=== PATIENT | female | born 1995 | race American Indian/Alaskan Native ===

== ENCOUNTER 2016-05-10 14:32 | Emergency (ER) | payer SELFPAY | END 2016-05-10 17:23 | disposition left against medical advice (07) | LOC: ED 14:32 | DX: R21 Rash and other nonspecific skin eruption (principal); Z91.018 Allergy to other foods; Z53.21 Procedure and treatment not carried out due to patient leaving prior to being seen by health care provider ==

== ENCOUNTER 2017-11-11 10:13 | Outpatient (CLI) | payer SELFPAY ==
[2017-11-11 11:41] VITALS: BP 99/70
== END 2017-11-11 12:10 | disposition home or self-care (01) ==
LOC: TRG 10:13
PROVIDERS: ATTEND Obstetrics & Gynecology
DX: O47.1 False labor at or after 37 completed weeks of gestation (principal); Z3A.39 39 weeks gestation of pregnancy
CPT/HCPCS: 59025

== ENCOUNTER 2017-11-20 05:48 | Inpatient (IN) | payer OTHER ==
[2017-11-20] MEDS ORDERED: POLYCILLIN/NS 2 GM/100 ML 2 GM/100 ML BAG IV ONE (06:37)
[2017-11-20] MEDS ORDERED: MINERAL OIL PO PRN (06:37)
[2017-11-20] MEDS ORDERED: BRETHINE IVP PRN (06:37)
[2017-11-20] MEDS ORDERED: XYLOCAINE 2% INFILTRATI ONE (06:37)
[2017-11-20] MEDS ORDERED: SUBLIMAZE IV PRN (06:37)
[2017-11-20] MEDS ORDERED: BRETHINE SUB-Q PRN (06:37)
[2017-11-20] MEDS ORDERED: ZOFRAN IV PRN (06:37)
--- NOTE | 2017-11-20 06:59 | History and Physical Report ---
History of Present Illness Date of examination: 11/20/17 Date of admission: 11/20/17 06:03 Chief complaint: Labor History of present illness: IUP@40 4/7wga by US performed at [facility] according to patient, she did not receive PNC b/c she was homeless. She started getting PNC with [facility] and was sent to [facility] for an US, after that she has not had any PNC Past History Past Medical History: no pertinent history Past Surgical History: no surgical history [employer] History: denies: chlamydia, gonorrhea, hepatitis B, hepatitis C, herpes, HIV , syphilis Social history: no significant social history - Obstetrical History Expected Date of Delivery: 11/16/17 Actual Gestation: 40 Week(s) 4 Day(s) : 2 Para: 1 Medications and Allergies Allergies Allergy/AdvReac Type Severity Reaction Status Date / Time apple Allergy Severe Swelling Verified 07/09/15 17:16 Home Medications Medication Instructions Recorded Confirmed Last Taken Type No Known Home Medications [No 11/11/17 11/11/17 Unknown History Reported Home Medications] Active Meds: Active Medications Ephedrine Sulfate (Ephedrine Sulfate) 10 mg IV Q2M PRN PRN Reason: Hypotension Fentanyl (Sublimaze) 100 mcg IV Q2H PRN PRN Reason: Labor Pain Ampicillin Sodium (Ampicillin/Ns 1 Gm/50 Ml) 1 gm in 50 mls @ 100 mls/hr IV Q4H KIKO; Protocol Ampicillin Sodium (Polycillin/Ns 2 Gm/100 Ml) 2 gm in 100 mls @ 100 mls/hr IV ONCE ONE; Protocol Stop: 11/20/17 07:36 Lactated Ringer's (Lactated Ringers) 1,000 mls @ 125 mls/hr IV DIRECT KIKO Oxytocin/Sodium Chloride (Pitocin/Ns 20 Unit/1000ml Drip) 20 units in 1,000 mls @ 125 mls/hr IV DIRECT KIKO Oxytocin/Sodium Chloride (Pitocin/Ns 30 Unit/500ml) 30 units in 500 mls @ 1 mls /hr IV TITR KIKO; Protocol Oxytocin/Sodium Chloride (Pitocin/Ns 30 Unit/500ml) 30 units in 500 mls @ 4 mls /hr IV TITR KIKO; Protocol Mineral Oil (Mineral Oil) 30 ml PO QHS PRN PRN Reason: Constipation Ondansetron HCl (Zofran) 4 mg IV Q8H PRN PRN Reason: Nausea And Vomiting Terbutaline Sulfate (Brethine) 0.25 mg SUB-Q ONCE PRN PRN Reason: Hyperstimulation/Hypertonicity Terbutaline Sulfate (Brethine) 0.25 mg IVP ONCE PRN PRN Reason: Hyperstimulation/Hypertonicity - Vital Signs Vital signs: Vital Signs Pulse Pulse Ox 76 99 11/20/17 06:21 11/20/17 06:21 Temp Pulse Resp BP Pulse Ox 69 114/78 100 11/20/17 06:51 11/20/17 06:49 11/20/17 06:51 - Physical Exam Breasts: Positive: deferred Lungs: Positive: Normal air movement Abdomen: Positive: soft. Negative: tenderness, guarding Genitourinary (Female): Positive: normal external genitalia, normal perenium Vulva: both: normal Uterus: Positive: enlarged Extremities: Positive: normal. Negative: tenderness, edema - Obstetrical FHR: category 1 Uterine Contraction Monitor Mode: External Cervical Dilatation: 5 Cervical Effacement Percentage: 70 station: -1 Uterine Contraction Pattern: Irregular Results All other labs normal. Assessment and Plan Anticpate vagianl delivery - Patient Problems (1) 40 weeks gestation of Current Visit: Yes Status: Acute (2) Active labor Current Visit: Yes Status: Acute (3) No care in current Current Visit: Yes Status: Acute
[2017-11-20] MEDS ORDERED: PITOCin/NS 20 UNIT/1000ML DRIP 20 UNITS/1,000 ML BAG IV SCH (07:00)
[2017-11-20] MEDS ORDERED: PITOCin/NS 30 UNIT/500ML 30 UNITS/500 ML BAG IV SCH ×2 (07:00)
[2017-11-20] MEDS ORDERED: LACTATED RINGERS 1,000 ML IV SCH (07:00)
[2017-11-20 07:23] LABS: Hematocrit 25.7 % (30.3-42.9); Hemoglobin 8.3 gm/dl (10.1-14.3); Mean Corpuscular HGB Conc 32 % (30-34); Mean Corpuscular Hemoglobin 29 pg (28-32); Mean Corpuscular Volume 89 fl (79-97); Platelet Count 121 K/mm3 (140-440); Red Blood Count 2.88 M/mm3 (3.65-5.03)
[2017-11-20 07:59] LABS: Rubella IgG Antibody Immune (Immune)
[2017-11-20 08:00] LABS: Amphetamine Screen,Urine PRESUMPTIVE NEGATIVE; Benzodiazepines Screen,Urine PRESUMPTIVE NEGATIVE; Cocaine Screen,Urine PRESUMPTIVE NEGATIVE; Methadone Screen,Urine PRESUMPTIVE NEGATIVE; Opiate Screen,Urine PRESUMPTIVE NEGATIVE
[2017-11-20 08:15] LABS: Cannabinoid Screen,Urine PRESUMPTIVE POSITIVE
[2017-11-20] MEDS ORDERED: NARCAN 2 MG/2 ML IV PRN (08:28)
--- NOTE | 2017-11-20 08:28 | Anesthesia Consultation ---
Anesthesia Consult and Med Hx Date of service: 11/20/17 - Airway Anesthetic Teeth Evaluation: Good ROM Head & Neck: Adequate Mental/Hyoid Distance: Adequate Mallampati Class: Class II Intubation Access Assessment: Probably Good - Pulmonary Exam CTA: Yes - Cardiac Exam Cardiac Exam: RRR - Pre-Operative Health Status ASA Pre-Surgery Classification: ASA2 Proposed Anesthetic Plan: Epidural, Spinal - Pulmonary Hx Asthma: No COPD: No Hx Pneumonia: No - Cardiovascular System Hx Hypertension: No - Central Nervous System Hx Seizures: No Hx Psychiatric Problems: No - Endocrine Hx Renal Disease: No Hx End Stage Renal Disease: No Hx Hypothyroidism: No Hx Hyperthyroidism: No - Hematic Hx Anemia: Yes Hx Sickle Cell Disease: No - Other Systems Hx Alcohol Use: No
[2017-11-20] MEDS: fentaNYL-BUPIV 2 MCG/ML-0.125% 200 MCG/100 ML BAG EPIDURAL SCH ×2 (09:52→11:26)
--- NOTE | 2017-11-20 10:22 | Event Note ---
Date: 11/20/17 Patient has had relief with epidural. Artificial rupture membranes performed with clear fluid. Cervix 6.5 cm 90% effaced -2 station. Will continue Pitocin
[2017-11-20] MEDS ORDERED: XYLOCAINE MPF 2% ONE (10:40)
[2017-11-20] MEDS: AMPICILLIN/NS 1 GM/50 ML 1 GM/50 ML BAG IV SCH ×2 (11:09→11:14)
[2017-11-20 11:11] LABS: Hepatitis C Virus Antibody Non-Reactive (NonReactive)
[2017-11-20] MEDS ORDERED: METHERGINE IM ONE (12:02)
--- NOTE | 2017-11-20 12:06 | Procedure Note ---
OB Delivery Note - Delivery Date of Delivery: 11/20/17 Surgeon: ADAN PORTER Estimated blood loss: 500cc - Vaginal Delivery position: OP Intrapartum events: no care Delivery augmentation: rupture of membranes, pitocin Delivery monitor: external FHT, external uterine, internal FHT, internal uterine Route of delivery: Delivery placenta: spontaneous Episiotomy: none Delivery laceration: 1st degree, other (Periurethral) Anesthesia: epidural Delivery comments: Patient with increased bleeding despite uterine massage and IV pitocin. Methergine given IM - A at 1 minute: 9 at 5 minutes: 9 Gender: Female
[2017-11-20] MEDS ORDERED: MILK OF MAGNESIA PO PRN (13:14)
[2017-11-20] MEDS ORDERED: TUCKS PAD TP PRN (13:14)
[2017-11-20] MEDS ORDERED: LANSINOH TP PRN (13:14)
[2017-11-20] MEDS ORDERED: TYLENOL PO PRN (13:14)
[2017-11-20] MEDS ORDERED: BENADRYL PO PRN (13:14)
[2017-11-20] MEDS ORDERED: PHENERGAN PO PRN (13:14)
[2017-11-20] MEDS ORDERED: SODIUM CHLORIDE FLUSH SYRINGE 10 ML IV NR (13:14)
[2017-11-20] MEDS ORDERED: DULCOLAX PR PRN (13:14)
[2017-11-20] MEDS: MOTRIN PO SCH ×2 (13:27→19:30)
[2017-11-21 00:56] LABS: Hematocrit 22.1 % (30.3-42.9)
[2017-11-21] MEDS ORDERED: BOOSTRIX IM ONE (06:00)
[2017-11-21] MEDS: MOTRIN PO SCH ×3 (06:16→21:08)
[2017-11-21] MEDS: PRENATAL VITAMIN PO SCH (10:00)
[2017-11-21] MEDS ORDERED: FEOSOL PO ONE (14:45)
[2017-11-21] MEDS: FEOSOL PO SCH ×2 (14:46→21:08)
--- NOTE | 2017-11-21 15:54 | Progress Note ---
Assessment and Plan - Patient Problems (1) Spontaneous vaginal delivery Onset Date: ~11/20/17 Current Visit: Yes Status: Acute Plan to address problem: Pt w/o complaint Family in room with pt. VSS FF below umb Lochia small perineum slight swelling intact H&H 10/09 drop r/t blood loss from delivery Pt is asymptomatic Doing well s/p vag del. P: d/c tomorrow due to unknown GBS status ( no care) Continue pathway advance as tolerated Subjective - Subjective Date of service: 11/21/17 (No c/o voiced) Principal diagnosis: Day #1 s/p vag delivery Patient reports: appetite normal, voiding normally, pain well controlled, ambulating normally : doing well Objective - Vital Signs Latest vital signs: Vital Signs Temp Pulse Resp BP BP Pulse Ox 11/21/17 08:31 97.3 F L 18 L 18 109/68 11/21/17 07:16 18 11/21/17 06:16 18 11/21/17 00:48 97.4 F L 63 18 105/78 100 11/20/17 20:30 18 11/20/17 20:05 98.2 F 61 18 107/68 11/20/17 19:30 18 11/20/17 17:11 98.6 F 64 18 107/69 Intake and Output 11/21/17 11/21/17 11/21/17 06:59 14:59 22:59 Intake Total 240 120 Balance 240 120 Intake: Oral 240 120 Other: Total, Intake Amount 240 120 # Voids Void 1 1 - Exam Breasts: Present: normal Cardiovascular: Present: Regular rate Lungs: Present: Normal air movement Abdomen: Present: normal appearance, soft Uterus: Present: normal, firm, fundal height below umbilicus Extremities: Present: normal Deep Tendon Reflex Grade: Normal +2 Incision: Present: normal, dry, intact - Labs Labs: Abnormal lab results 11/21/17 Range/Units 00:35 Hgb 7.0 L (10.1-14.3) gm/dl Hct 22.1 L (30.3-42.9) %
[2017-11-22] MEDS: MOTRIN PO SCH ×2 (03:27→14:05)
--- NOTE | 2017-11-22 08:33 | Discharge Summary ---
Providers - Providers Date of Admission: 11/20/17 06:03 Date of discharge: 11/22/17 (desires d/c home) Attending physician: TERA LEÓN 11/20/17 16:33 Consult to Case Management [CONS] Routine Services Needed at Discharge: Guardian Ad Litem Notified:: Attempted to contact Case Management Phone number called:: [phone] Was contact made?: No Time called:: 16:36 Additional Physician Instructions: UDS positive for THC Primary care physician: TERA LEÓN Hospitalization Reason for admission: labor Condition: Good Pertinent studies: post delivery H&H 7.0/22.1 - asymptomatic, preexisting anemia Procedures: vaginal Hospital course: uncomplicated vaginal and course Disposition: - TO HOME OR SELFCARE - Discharge Diagnoses (1) Spontaneous vaginal delivery Status: Acute (2) Anemia Status: Acute Core Measure Documentation - Palliative Care Palliative Care/ Comfort Measures: Not Applicable - Core Measures Any of the following diagnoses?: none Exam - Constitutional Vitals: Temp Pulse Resp BP Pulse Ox 98.2 F 63 16 102/64 100 11/21/17 23:37 11/21/17 23:37 11/21/17 23:37 11/21/17 23:37 11/21/17 00:48 General appearance: Present: no acute distress, well-nourished - EENT Eyes: Present: PERRL ENT: hearing intact, clear oral mucosa - Neck Neck: Present: supple, normal ROM - Respiratory Respiratory effort: normal Respiratory: bilateral: CTA - Cardiovascular Heart Sounds: Present: S1 & S2. Absent: rub, click - Extremities Extremities: pulses symmetrical, No edema Peripheral Pulses: within normal limits - Abdominal General gastrointestinal: Present: soft, non-tender, non-distended, normal bowel sounds Female genitourinary: Present: normal - Integumentary Integumentary: Present: clear, warm, dry - Musculoskeletal Musculoskeletal: gait normal, strength equal bilaterally - Psychiatric Psychiatric: appropriate mood/affect, intact judgment & insight - Neurologic Neurologic: CNII-XII intact, moves all extremities - Additional findings Additional findings: lochia scant, fundus firm, breast feeding Plan Activity: no restrictions Diet: regular Follow up with: TERA LEÓN MD [Primary Care Provider] - 6 Weeks (Congratulations!! Please call [phone] to schedule your visit in 6 weeks. Call for any questions or concerns. ) Prescriptions: Docusate Sodium [Colace] 100 mg PO BID PRN #60 capsule PRN Reason: Constipation Ferrous Sulfate [Feosol 325 MG tab] 325 mg PO TID #90 tablet Ibuprofen [Motrin 800 MG tab] 800 mg PO Q8HR PRN #30 tablet PRN Reason: Pain
[2017-11-22] MEDS ORDERED: DEPO-PROVERA (CONTRACEPTION) IM NR (09:00)
[2017-11-22] MEDS: FEOSOL PO SCH (14:05)
[2017-11-22] MEDS: PRENATAL VITAMIN PO SCH (14:05)
[2017-11-22] MEDS ORDERED: DEPO-PROVERA (CONTRACEPTION) IM ONE (14:09)
[2017-11-22 16:59] VITALS: BP 115/72
== END 2017-11-22 15:45 | disposition home or self-care (01) | DRG 775 ==
LOC: TRG 05:48 → LD 06:03 → OB 14:56
PROVIDERS: ADMIT Obstetrics & Gynecology; ATTEND Obstetrics & Gynecology
PROC: 10E0XZZ Delivery of Products of Conception, External Approach (ICD-10-PCS; principal; 2017-11-20)
PROC: 3E0R3BZ Introduction of Anesthetic Agent into Spinal Canal, Percutaneous Approach (ICD-10-PCS; 2017-11-20)
PROC: 00HU33Z Insertion of Infusion Device into Spinal Canal, Percutaneous Approach (ICD-10-PCS; 2017-11-20)
DX: O99.02 Anemia complicating childbirth (principal); O71.82 Other specified trauma to perineum and vulva; Z37.0 Single live birth; Z3A.40 40 weeks gestation of pregnancy; Z91.018 Allergy to other foods
CPT/HCPCS: 36415; 80307; 85014; 85018; 85027; 86592; 86706; 86762; 86803; 86850; 86900; 86901; 87806; 90471; 90715; 99211; G0463; J0290; J1050; J2210; J2405; J2590; J3010; J7120

== ENCOUNTER 2019-08-17 22:36 | Observation (INO) | payer MEDICAID ==
--- NOTE | 2019-08-18 00:50 | Event Note ---
Date: 08/18/19 (Pt with ctxs) Was called by RN to come evaluate patient because pt seemed to be in active labor. She is a @ 40.3 wks walk in patient. States that she has had no complications this and all her pregnancies have been . EDC per visit obtained from [facility] 08/14/2019. Some records obtained states she has had one visit at [facility] where she was told that she was 4 cm, but was not progressing and sent home. GBS unknown. According to the patient, it was collected on 08/17/2019. Upon my arrival, patient was in bed moaning some with ctxs. Cervical exam . Membranes intact. Fluid bolus infusing. Will order labs and allow patient to walk around to see if there is cervical change.. The monitor strip was category 1 before walking. Will reassess cervix once patient is finished walking.
--- NOTE | 2019-08-18 01:30 | Event Note ---
Date: 08/18/19 (Pt back to room from walking.) Pt returned to room from walking. She has been walking for almost an hour. Her cervical exam has still been unchanged. Labor precautions given. Pt is stable for discharge home. Her monitor strip has been category 1 throughout her triage stage.
[2019-08-18 03:41] VITALS: BP 109/67
== END 2019-08-18 06:37 | disposition home or self-care (01) ==
LOC: TRG 22:36 → LD 22:38 → TRG 08-18 00:34 → LD 08-18 01:07
PROVIDERS: ADMIT Obstetrics & Gynecology; ATTEND Obstetrics & Gynecology
DX: O62.9 Abnormality of forces of labor, unspecified (principal); O48.0 Post-term pregnancy; Z3A.40 40 weeks gestation of pregnancy
CPT/HCPCS: 59025; G0378

== ENCOUNTER 2020-08-14 21:18 | Outpatient (CLI) | payer MEDICAID ==
[2020-08-14 22:16] VITALS: BP 105/57
== END 2020-08-14 23:00 | disposition home or self-care (01) ==
LOC: TRG 21:18 → APU 21:19 → TRG 23:00
DX: Z34.93 Encounter for supervision of normal pregnancy, unspecified, third trimester (principal); Z3A.38 38 weeks gestation of pregnancy
CPT/HCPCS: 59025

== ENCOUNTER 2021-10-27 20:41 | Emergency (ER) | payer MEDICAID | END 2021-10-27 21:53 | disposition left against medical advice (07) | LOC: ED 20:41 | DX: S83.19 Other subluxation and dislocation of knee (principal); Z53.21 Procedure and treatment not carried out due to patient leaving prior to being seen by health care provider; X58.XXXA Exposure to other specified factors, initial encounter; Y93.89 Activity, other specified; Y92.89 Other specified places as the place of occurrence of the external cause; Y99.8 Other external cause status ==